=== PATIENT | female | born 1940 | race Caucasian/White ===

== ENCOUNTER → 2019-06-11 | Outpatient (CLI) | payer MEDICARE ==
[~2019-06-11] MED LIST: FLUT1DIS3 PUFF; LEVO112T7 PO; METO-391 PO; OXYB5SYR2 PO; REGADENOSON 0.4 MG/5 ML PF SYG IVP SCH; SERT50TA12 PO; SIMV40TA59 PO
== END | disposition home or self-care (01) ==
LOC: RAH 09:53
PROVIDERS: ATTEND Internal Medicine Cardiovascular Disease
DX: R06.02 Shortness of breath (principal); I10 Essential (primary) hypertension; K21.9 Gastro-esophageal reflux disease without esophagitis; E78.5 Hyperlipidemia, unspecified; E03.9 Hypothyroidism, unspecified; F32.9 Major depressive disorder, single episode, unspecified; J45.909 Unspecified asthma, uncomplicated; I48.91 Unspecified atrial fibrillation
CPT/HCPCS: 78452; 93017; A9500 ×2; J2785; 96374